=== PATIENT | female | born 1960 | race Caucasian/White ===

== ENCOUNTER 2020-07-05 08:53 | Emergency (ER) | payer OTHER, MEDICAID ==
[~2020-07-05] VITALS: Ht 172.7 cm; Wt 114.3 kg
--- NOTE | 2020-07-05 09:18 | PHYS DOC ---
Past History Past Medical History: Diabetes Adult General HPI HPI Patient is a 60-year-old female who presents with right middle finger laceration. Onset of injury was just prior to arrival. Patient was helping a friend install handicap accessible gate on the back of a pickup truck when she caught her fingertip during closure. Patient suffered laceration to tip, distal of her DIP joint. Patient reported bleeding that resolved with direct pressure. Patient presents to our ER for further evaluation and management as indicated. Patient denies any known MRSA infection. Patient's tetanus shot is up-to-date. Patient has no other concerning constitutional symptoms, febrile illness, COVID- 19 exposure to disclose Review of Systems Review of Systems Fourteen body systems of review of systems have been reviewed. See HPI for pertinent positives and negative responses, other fuller all other systems are n egative, non-pertinent or non-contributory Physical Exam Physical Exam Constitutional: Well developed, well nourished, no acute distress, non-toxic appearance. [] HENT: Normocephalic, atraumatic, bilateral external ears normal, oropharynx moist, no oral exudates, nose normal. [] Eyes: PERRLA, EOMI, conjunctiva normal, no discharge. [] Neck: Normal range of motion, no tenderness, supple, no stridor. [] Cardiovascular:Heart rate regular rhythm, no murmur [] Lungs & Thorax: Bilateral breath sounds clear to auscultation [] Abdomen: Bowel sounds normal, soft, no tenderness, no masses, no pulsatile masses. [] Skin: Warm, dry, no erythema, no rash. [] Back: No tenderness, no CVA tenderness. [] Extremities: No cyanosis, no clubbing, ROM intact, no edema. Isolation of each digit, documented as bilateral findings unless otherwise noted Index F: FDS, FDP, extension intact with PROM against resistance. No pain on movement. RDN/UDN intact. 2 pt discrimination intact. CR < 2s. Soft compartment. No gross deformity. Middle F: FDS, FDP, extension intact with PROM against resistance. No pain on movement. RDN/UDN intact. 2 pt discrimination intact. CR < 2s. Soft compartment. Deformity noted to distal tip of right middle finger, 1 cm linear simple laceration without involvement of any underlying tendons. Deformity is distal to DIP, does not involve nail bed matrix, hemostasis achieved prior to arrival Ring F: FDS, FDP, extension intact with PROM against resistance. No pain on movement. RDN/UDN intact. 2 pt discrimination intact. CR < 2s. Soft compartment. No gross deformity Short F: FDS, FDP, extension intact with PROM against resistance. No pain on movement. RDN/UDN intact. 2 pt discrimination intact. CR < 2s. Soft compartment. No gross deformity Thumb: FPL, EPL, EPB, APL intact per routine. RDN/UDN intact per routine. CR < 2s. No gross deformity. Compartments soft. Neurologic: Alert and oriented X 3, normal motor function, normal sensory function, no focal deficits noted. [] Psychologic: Affect normal, judgement normal, mood normal. [] EKG EKG [] Radiology/Procedures Radiology/Procedures [] Course & Med Decision Making Course & Med Decision Making Patient seen and evaluated by myself in ED Comprehensive history and physical exam obtained Simple laceration to right distal tip of middle finger, uncomplicated in nature, patient up-to-date on tetanusLaceration cleansed extensively, Dermabond applied without any issues Wound care instructions discussed, strict return precautions discussed, patient reported good understanding to all. All questions and concerns addressed prior to departure Patient discharged home in stable condition with close PCP follow-up advised in upcoming 1 to 7 days Sudhakar Disclaimer Sudhakar Disclaimer This electronic medical record was generated, in whole or in part, using a voice recognition dictation system. Laceration Repair Lac Repair Indication: Laceration to distal tip of right middle finger Procedure: The patient was placed in the appropriate position. Area cleansed with chlorhexidine solution and copiously irrigated with tap water. Site dried, Dermabond applied with good closure and skin approximation. Petroleum-based jelly was placed on top, Band-Aid wrapped around for closure Total repaired wound length: 1 cm. Other Items: Dermabond The patient tolerated the procedure well. Complications: None. Departure Departure: Impression: Primary Impression: Laceration of finger of right hand Disposition: HOME/RESIDENCE PRIOR TO ADM Condition: STABLE Referrals: PCP,NO (PCP) Patient Instructions: Laceration Care, Adult Justification of Admission: Justification of Admission: Justification of Admission Dx: N/A HANS BYRNE DO Jul 05, 2020 09:18
[2020-07-05 09:30] VITALS: BP 133/69
== END 2020-07-05 09:30 | disposition home or self-care (01) ==
LOC: ER 08:53
DX: S61.212A Laceration without foreign body of right middle finger without damage to nail, initial encounter (principal); W26.8XXA Contact with other sharp object(s), not elsewhere classified, initial encounter; Y93.89 Activity, other specified; Y92.89 Other specified places as the place of occurrence of the external cause; Y99.8 Other external cause status
CPT/HCPCS: 12001; 99282

== ENCOUNTER → 2020-07-14 | Outpatient (CLI) | payer OTHER, MEDICAID ==
[2020-07-05 09:30] VITALS: BP 133/69
--- NOTE | 2020-07-14 19:32 | RAD ---
EXAM: PA, oblique and lateral views right wrist DATE: 07/14/2020 12:00 AM INDICATION: Reason: PAIN, GANGLOIN CYST / Spl. Instructions: / History: COMPARISON: No Prior FINDINGS/ IMPRESSION: Moderate soft tissue swelling at the volar aspect of the right wrist with bulging of the pronator fat pad. However no definite acute fracture or dislocation. Mild thumb CMC and triscaphe degenerative changes are seen. Electronically signed by: Florentino Laird MD (07/14/2020 7:30 PM) [facility]
== END | disposition home or self-care (01) ==
LOC: DXRAD 13:12
PROVIDERS: ATTEND Orthopaedic Surgery Sports Medicine
DX: M19.031 Primary osteoarthritis, right wrist (principal); M18.9 Osteoarthritis of first carpometacarpal joint, unspecified
CPT/HCPCS: 73110

== ENCOUNTER → 2020-08-02 | Outpatient (CLI) | payer OTHER ==
[2020-07-05 09:30] VITALS: BP 133/69
--- NOTE | 2020-08-11 15:29 | RAD ---
DATE: 08/02/2020 3:25 PM EXAM: MAMMO HARINI SCREENING BILATERAL HISTORY: Screening COMPARISON: 03/04/17 Bilateral CC and MLO views of the breasts were performed. Bilateral breast tomosynthesis was performed in CC and MLO projections. This study was interpreted with the benefit of Computerized Aided Detection (CAD). FINDINGS: Breast Density: FATTY The Breast Parenchyma is primarily fatty replaced. Breast parenchyma level density A. No suspicious masses, microcalcifications or architectural distortion is present to suggest malignancy in either breast. The visualized axillae are unremarkable. IMPRESSION: No mammographic evidence of malignancy. BI-RADS CATEGORY: 1 NEGATIVE RECOMMENDED FOLLOW-UP: 12M 12 MONTH FOLLOW-UP Annual screening mammography is recommended, unless clinically indicated sooner based on symptoms or change in physical exam. PQRS compliance statement: Patient information was entered into a reminder system with a target due date for the next mammogram. Mammography is a sensitive method for finding small breast cancers, but it does not detect them all and is not a substitute for careful clinical examination. A negative mammogram does not negate a clinically suspicious finding and should not result in delay in biopsying a clinically suspicious abnormality. "Our facility is accredited by the [employer] Mammography Program."
== END | disposition home or self-care (01) ==
LOC: MAMMO 15:21
PROVIDERS: ATTEND Family Medicine
DX: Z12.31 Encounter for screening mammogram for malignant neoplasm of breast (principal)
CPT/HCPCS: 77063; 77067

== ENCOUNTER → 2020-08-21 | Outpatient (CLI) | payer OTHER ==
--- NOTE | 2020-08-21 17:17 | RAD ---
EXAM: CT Abdomen and Pelvis without IV contrast CLINICAL HISTORY: FLANK PAIN COMPARISON: none TECHNIQUE: Helical CT of the abdomen and pelvis was performed without the administration of IV contrast. Axial, coronal and sagittal reformatted images were generated. ---PQRS compliance statement - One or more of the following individualized dose reduction techniques were utilized for this study: 1. Automated exposure control 2. Adjustment of the mA and/or kV according to patient size 3. Use of iterative reconstruction technique--- FINDINGS: Lack of intravenous contrast limits evaluation of solid organs, vasculature, and lymph nodes. Lower chest: Lung bases are clear. Abdomen and pelvis: Liver and biliary system: No focal liver lesion. Accounting for postcholecystectomy change, no biliary ductal dilatation. Spleen: Borderline enlarged, 12.5 cm in length. Pancreas: Unremarkable Adrenal glands: Unremarkable Kidneys: No focal renal lesion. No hydronephrosis. No hydroureter. Lymph nodes/retroperitoneum: No abdominal or pelvic lymphadenopathy. Vessels: Aortic calcifications are seen. Bowel/Peritoneal cavity: Moderate colonic stool content is seen. Appendix is normal. No small or large bowel dilatation. No bowel obstruction. No abdominal or pelvic ascites. Abdominal wall: Unremarkable Bladder: Bladder wall thickening may be seen with cystitis. Bones: No aggressive osseous lesion is seen. Degenerative changes of the spine are seen. IMPRESSION: 1. No renal tract calculus. 2. Accounting for postcholecystectomy change, no biliary ductal dilatation. 3. Appendix is normal. 4. Moderate colonic stool content. No bowel obstruction. Electronically signed by: Florentino Laird MD (08/21/2020 5:14 PM) [id number]
== END | disposition home or self-care (01) ==
LOC: RAD 14:47
PROVIDERS: ATTEND Family Medicine
DX: N30.10 Interstitial cystitis (chronic) without hematuria (principal); I70.0 Atherosclerosis of aorta; R16.0 Hepatomegaly, not elsewhere classified; M47.819 Spondylosis without myelopathy or radiculopathy, site unspecified; Z90.49 Acquired absence of other specified parts of digestive tract
CPT/HCPCS: 74176

== ENCOUNTER → 2022-03-22 | Outpatient (CLI) | payer MEDICARE, OTHER, MEDICAID ==
[~2022-03-22] MED LIST: IOHEXOL 300 MG/ML 75 ML VIAL. IV ONE
[2022-03-22 14:33] LABS: CREATININE 0.8 mg/dL (0.6-1.0); GFR 72.9
--- NOTE | 2022-03-22 15:25 | RAD ---
EXAMINATION: CT abdomen and pelvis with IV contrast. INDICATION:62 years, Female, right upper quadrant abdominal pain. TECHNIQUE: Axial CT images of the abdomen and pelvis were obtained. Coronal and sagittal reformatted performed. COMPARISON: 08/21/2020. Exposure: One or more of the following individualized dose reduction techniques were utilized for thi s examination: 1. Automated exposure control 2. Adjustment of the mA and/or kV according to patient size 3. Use of iterative reconstruction technique. FINDINGS: LOWER CHEST: Unremarkable. ABDOMEN/PELVIS: Mild hepatomegaly with diffuse steatosis, measures 20.2 cm in length. No suspicious focal hepatic les ion. Cholecystectomy. No biliary ductal dilation. Spleen is unremarkable. Diffuse atrophic pancreas w ith fat infiltration. No adrenal nodule. No hydronephrosis or nephrolithiasis in either kidney. Nonsp ecific bilateral perinephric fat stranding. No bowel dilation. Normal appendix. Patent abdominal vasculatures. No lymphadenopathy. No pneumoperit oneum or ascites. Unremarkable urinary bladder. Hysterectomy. No suspicious pelvic masses. MUSCULOSKELETAL STRUCTURES: Post ventral hernia repair changes with mesh. No acute osseous process or suspicious lesion. Multilev el degenerative changes in the spine. IMPRESSION: 1. No acute intra-abdominal/pelvic abnormality. 2. Hepatomegaly with diffuse steatosis. Electronically signed by: Rojas Casanova MD (03/22/2022 3:23 PM) [facility]
== END ==
LOC: CT 13:29
PROVIDERS: ATTEND Internal Medicine
DX: Z01.812 Encounter for preprocedural laboratory examination (principal); R16.0 Hepatomegaly, not elsewhere classified; K76.0 Fatty (change of) liver, not elsewhere classified; K86.89 Other specified diseases of pancreas; M47.819 Spondylosis without myelopathy or radiculopathy, site unspecified; Z90.49 Acquired absence of other specified parts of digestive tract
CPT/HCPCS: 36415; 74177; 82565; 84520; Q9967